=== PATIENT | female | born 1955 | race American Indian/Alaskan Native ===

== ENCOUNTER 2016-09-12 09:52 | Emergency (ER) | payer SELFPAY ==
--- NOTE | 2016-09-12 11:48 | Emergency Department Report ---
- General Chief Complaint: Upper Respiratory Infection Stated Complaint: COUGHING/FLUXATING SUGAR Time Seen by Provider: 09/12/16 11:16 Source: patient Mode of arrival: Ambulatory Limitations: No Limitations - History of Present Illness Initial Comments: Pt reports that she has had a productive cough x 3-4 weeks. No fevers or SOB. Pt is a smoker. Reports she felt bad last night and that her glucose dropped to 27 when she checked it- reports it is back to the 150s this AM. Reports she took a couple extra units of her 70/30 because it was high last night. Complaint: cough -: Gradual, week(s) (4) Severity: moderate Consistency: constant Improves With: nothing Worsens With: nothing Associated Symptoms: denies other symptoms, cough - Related Data Previous Rx's Medication Instructions Recorded Last Taken Type Azithromycin [Zithromax] 250 mg PO DAILY #6 tablet 09/12/16 Unknown Rx Benzonatate [Tessalon Perles] 100 mg PO Q8HR #30 capsule 09/12/16 Unknown Rx Allergies Allergy/AdvReac Type Severity Reaction Status Date / Time acetaminophen [From Percocet] AdvReac HALLUCINATI Verified 09/12/16 10:07 ONS morphine AdvReac Hives Verified 09/12/16 10:07 oxycodone HCl [From Percocet] AdvReac HALLUCINATI Verified 09/12/16 10:07 ONS ED Review of Systems ROS: Stated complaint: COUGHING/FLUXATING SUGAR Other details as noted in HPI Comment: All other systems reviewed and negative Constitutional: denies: chills, fever Eyes: denies: eye pain, eye discharge, vision change ENT: denies: ear pain, throat pain Respiratory: cough. denies: shortness of breath, wheezing Cardiovascular: denies: chest pain, palpitations Endocrine: no symptoms reported Gastrointestinal: denies: abdominal pain, nausea, diarrhea Genitourinary: denies: urgency, dysuria, discharge Musculoskeletal: denies: back pain, joint swelling, arthralgia Skin: denies: rash, lesions Neurological: denies: headache, weakness, paresthesias Psychiatric: denies: anxiety, depression Hematological/Lymphatic: denies: easy bleeding, easy bruising ED Past Medical Hx - Past Medical History Hx Diabetes: Yes - Surgical History Additional Surgical History: C-SECTIONS X 4. TUBAL LIGATION - Social History Smoking Status: Current Every Day Smoker Substance Use Type: Alcohol - Medications Home Medications: Home Medications Medication Instructions Recorded Confirmed Last Taken Type Azithromycin [Zithromax] 250 mg PO DAILY #6 tablet 09/12/16 Unknown Rx Benzonatate [Tessalon Perles] 100 mg PO Q8HR #30 capsule 09/12/16 Unknown Rx ED Physical Exam - General Limitations: No Limitations General appearance: alert, in no apparent distress - Head Head exam: Present: atraumatic, normocephalic - Eye Eye exam: Present: normal appearance, PERRL, EOMI - ENT ENT exam: Present: normal orophraynx, mucous membranes moist - Neck Neck exam: Present: normal inspection - Respiratory Respiratory exam: Present: normal lung sounds bilaterally. Absent: respiratory distress, wheezes, rhonchi, decreased breath sounds - Cardiovascular Cardiovascular Exam: Present: regular rate, normal rhythm, systolic murmur. Absent: diastolic murmur, rubs, gallop - GI/Abdominal GI/Abdominal exam: Present: soft, normal bowel sounds - Extremities Exam Extremities exam: Present: normal inspection - Back Exam Back exam: Present: normal inspection - Neurological Exam Neurological exam: Present: alert, oriented X3 - Psychiatric Psychiatric exam: Present: normal affect, normal mood - Skin Skin exam: Present: warm, dry, intact, normal color. Absent: rash ED Course Vital Signs 09/12/16 10:05 Temperature 98.6 F Pulse Rate 82 Respiratory 18 Rate Blood Pressure 190/96 O2 Sat by Pulse 100 Oximetry - Reevaluation(s) Reevaluation #1: 09/12/16 13:03 NAD, stable for d/c. VSS. ED Medical Decision Making - Lab Data Result diagrams: 09/12/16 11:39 09/12/16 11:39 - Medical Decision Making Pt w/ LRTI, no abnormalities on CXR. Labs essentially WNL. Will continue current doses of meds at home and monitor glucose. Follow with PCP in 2-3 days. - Differential Diagnosis bronchitis, pna, ca, hypoglycemia Critical care attestation.: If time is entered above; I have spent that time in minutes in the direct care of this critically ill patient, excluding procedure time. ED Disposition Clinical Impression: LRTI (lower respiratory tract infection) Disposition: DISCHARGED TO HOME OR SELFCARE Is pt being admited?: No Condition: Good Instructions: Acute Bronchitis (ED) Prescriptions: Azithromycin [Zithromax] 250 mg PO DAILY #6 tablet Benzonatate [Tessalon Perles] 100 mg PO Q8HR #30 capsule Referrals: PRIMARY CARE, [Primary Care Provider] - 3-5 Days Forms: Work/School Release Form(ED) Time of Disposition: 13:05
[2016-09-12 11:51] LABS: Basophils % (Auto) 0.9 % (0.0-1.8); Eosinophils % (Auto) 0.1 % (0.0-4.3); Hematocrit 44.2 % (30.3-42.9); Hemoglobin 14.7 gm/dl (10.1-14.3); Mean Corpuscular HGB Conc 33 % (30-34); Mean Corpuscular Hemoglobin 31 pg (28-32); Mean Corpuscular Volume 92 fl (79-97); Platelet Count 242 K/mm3 (140-440); Red Cell Distribution Width 14.2 % (13.2-15.2); White Blood Count 8.4 K/mm3 (4.5-11.0)
--- NOTE | 2016-09-12 12:33 | XRay Report ---
CHEST 2 VIEWS INDICATION: Cough. COMPARISON: None similar at this institution. FINDINGS: PA and lateral chest radiographs, 3 images, demonstrate normal cardiomediastinal silhouette. Clear lungs. Biapical scarring or pleural thickening. Mild upper thoracic levoscoliosis. CONCLUSION: No acute disease in the chest. Thank you for the opportunity to participate in this patient's care.
[2016-09-12 12:53] LABS: Anion Gap 19 mmol/L; Blood Urea Nitrogen 12 mg/dL (7-17); Calcium 9.4 mg/dL (8.4-10.2); Carbon Dioxide 29 mmol/L (22-30); Chloride 92.2 mmol/L (98-107); Glucose 157 mg/dL (65-100); Potassium 4.4 mmol/L (3.6-5.0); Sodium 136 mmol/L (137-145)
[2016-09-12 13:11] VITALS: BP 183/78
== END 2016-09-12 13:15 | disposition home or self-care (01) ==
LOC: ED 09:52
DX: J22 Unspecified acute lower respiratory infection (principal); E11.9 Type 2 diabetes mellitus without complications; F17.200 Nicotine dependence, unspecified, uncomplicated
CPT/HCPCS: 36415; 71020; 80048; 85025; 99283